=== PATIENT | male | born 1940 | race Caucasian/White ===

== ENCOUNTER → 2021-12-22 10:35 | Outpatient (BNVA) | payer MEDICARE, MEDICAID, SELFPAY | PROVIDERS: Family Provider Family Medicine; PCP Family Medicine; Visit Provider Family Medicine | DX: M79.643 Pain in unspecified hand (principal); E78.5 Hyperlipidemia, unspecified; I10 Essential (primary) hypertension | CPT/HCPCS: 80053 ==

== ENCOUNTER → 2022-05-24 09:35 | Outpatient (BNVA) | payer MEDICARE, MEDICAID, SELFPAY | PROVIDERS: Family Provider Family Medicine; PCP Family Medicine; Visit Provider Specialist | DX: G56.01 Carpal tunnel syndrome, right upper limb (principal) | CPT/HCPCS: 73110; 99203 ==

== ENCOUNTER → 2022-07-27 09:41 | Outpatient (BNVA) | payer MEDICARE, MEDICAID, SELFPAY | PROVIDERS: Family Provider Family Medicine; PCP Family Medicine; Referring Provider Specialist; Visit Provider Specialist | DX: G56.03 Carpal tunnel syndrome, bilateral upper limbs (principal) | CPT/HCPCS: 95910; 95912 ==

== ENCOUNTER → 2022-08-05 10:21 | Outpatient (BNVA) | payer MEDICARE, MEDICAID, SELFPAY | PROVIDERS: Family Provider Family Medicine; PCP Family Medicine; Visit Provider Specialist | DX: G56.01 Carpal tunnel syndrome, right upper limb (principal); M19.031 Primary osteoarthritis, right wrist | CPT/HCPCS: 99213 ==

== ENCOUNTER 2023-01-06 11:21 | Outpatient (CLI) | payer MEDICARE, MEDICAID, SELFPAY ==
--- NOTE | 2023-01-06 11:39 | XR_ITS ---
WS: [id number] Exam: XR sacroiliac jts m 3V [id number] Date/Time of Exam: 01/06/2023 11:39 AM Reason For Exam: low back pain No acute fracture or dislocation. 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 The right joint appears to be open. Degenerative change of both joints. Osteopenia. Moderate rectal fecal impaction. XR/XR sacroiliac jts m 3V [id number] IMPRESSION: 1. Bilateral SI joint DJD. 2. 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 3. No fracture or bone destruction.
--- NOTE | 2023-01-06 11:39 | XR_ITS ---
WS: [id number] Exam: XR lumbar spine 2-3V* [id number] Date/Time of Exam: 01/06/2023 11:39 AM Reason For Exam: low back pain No fracture or dislocation. Mild levoscoliosis. Marked osteopenia. Facet DJD at all levels. 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 Remaining discs are relatively we ll maintained. Large amount of stool in the rectum. XR/XR lumbar spine 2-3V* [id number] IMPRESSION: 1. Degenerative changes and osteopenia. 2. No fracture or malalignment. Mild levoscoliosis.
== END 2023-01-06 11:22 | disposition home or self-care (01) ==
LOC: LAB 11:30 → RAD 11:33
PROVIDERS: PCP Family Medicine; Visit Provider Family Medicine
DX: M46.1 Sacroiliitis, not elsewhere classified (principal); M47.816 Spondylosis without myelopathy or radiculopathy, lumbar region; M41.86 Other forms of scoliosis, lumbar region; M43.28 Fusion of spine, sacral and sacrococcygeal region; M85.80 Other specified disorders of bone density and structure, unspecified site
CPT/HCPCS: 72100; 72202; J1040

== ENCOUNTER → 2023-02-07 13:41 | Outpatient (BNVA) | payer MEDICARE, MEDICAID, SELFPAY | PROVIDERS: PCP Family Medicine; Visit Provider Student in an Organized Health Care Education/Training Program | DX: G56.01 Carpal tunnel syndrome, right upper limb (principal) | CPT/HCPCS: 99204 ==

== ENCOUNTER → 2023-02-22 12:36 | Outpatient (BNVA) | payer MEDICARE, MEDICAID, SELFPAY | PROVIDERS: PCP Family Medicine; Visit Provider Clinical Nurse Specialist Adult Health | DX: I10 Essential (primary) hypertension (principal); M54.50 Low back pain, unspecified | CPT/HCPCS: 80053; 85025; 85651; 86140 ==

== ENCOUNTER → 2023-10-13 11:57 | Outpatient (BNVA) | payer MEDICARE, MEDICAID, SELFPAY | PROVIDERS: PCP Family Medicine; Visit Provider Family Medicine | DX: I10 Essential (primary) hypertension (principal); M54.50 Low back pain, unspecified | CPT/HCPCS: 80053 ==

== ENCOUNTER → 2024-09-13 10:57 | Outpatient (BNVA) | payer MEDICARE, MEDICAID, SELFPAY | PROVIDERS: PCP Family Medicine; Visit Provider Family Medicine | DX: I10 Essential (primary) hypertension (principal); E78.5 Hyperlipidemia, unspecified; M19.031 Primary osteoarthritis, right wrist | CPT/HCPCS: 80053; 80061; 85025 ==

== ENCOUNTER → 2024-09-17 10:15 | Outpatient (BNVA) | payer MEDICARE, MEDICAID, SELFPAY | PROVIDERS: PCP Family Medicine; Visit Provider Family Medicine | DX: D64.9 Anemia, unspecified (principal); M19.031 Primary osteoarthritis, right wrist; I10 Essential (primary) hypertension; E78.5 Hyperlipidemia, unspecified | CPT/HCPCS: 85025 ==

== ENCOUNTER → 2024-10-08 14:03 | Outpatient (BNVA) | payer MEDICARE, MEDICAID, SELFPAY | PROVIDERS: PCP Family Medicine; Visit Provider Family Medicine | DX: D64.9 Anemia, unspecified (principal) | CPT/HCPCS: 85025 ==

== ENCOUNTER → 2024-11-12 13:36 | Outpatient (BNVA) | payer MEDICARE, MEDICAID, SELFPAY | PROVIDERS: PCP Family Medicine; Visit Provider Family Medicine | DX: D64.9 Anemia, unspecified (principal) | CPT/HCPCS: 85025; 86140 ==